=== PATIENT | female | born 1940 | race Caucasian/White ===

== ENCOUNTER → 2016-11-01 | Outpatient (CLI) | payer MEDICARE, BC | LOC: MC.RAD 10:15 | DX: Z12.31 Encounter for screening mammogram for malignant neoplasm of breast (principal); Z80.3 Family history of malignant neoplasm of breast ==

== ENCOUNTER → 2017-05-12 | Outpatient (CLI) | payer MEDICARE, BC ==
[~2017-05-12] MED LIST: CEFTIN 250250 MG/TAB PO; ELIQUIS 5MG PO; GLUCOPHAGE1000 MG PO; JANUVIA 100MG100 MG PO; LOTREL 10 MG-201 CAP PO; PACERONE200 MG PO; PHENERGAN1.25 MG/ML PO; PRAVACHOL 40MG40 MG PO; PROMETHAZINE12.5 M5; ZOFRAN ODT8 MG PO
== END ==
LOC: COL.RAD 08:15
DX: R13.10 Dysphagia, unspecified (principal)
CPT/HCPCS: G8996-GN; G8997-GN

== ENCOUNTER → 2017-06-14 | Outpatient (CLI) | payer MEDICARE, BC ==
[~2017-06-14] MED LIST changes: +COREG 3.123.125 MG/T PO; +CRANBERRY500 M3 PO; +GLUCOPHAGE500 MG/TAB PO; +JANUVIA25 MG PO; +MEDROL 4MG DOSPA4 MG PO; +PRILOSEC 20MG20 MG PO
== END ==
LOC: COL.RAD 10:12
DX: K82.8 Other specified diseases of gallbladder (principal); K83.8 Other specified diseases of biliary tract; K76.0 Fatty (change of) liver, not elsewhere classified